=== PATIENT | female | born 1995 | race Caucasian/White ===

== ENCOUNTER 2024-12-19 08:32 | Emergency (ER) | payer SELFPAY ==
[2024-12-19 08:44] VITALS: BP 129/66; PULSE 81; RESP 18; TEMP 36.4; O2SAT 100
--- NOTE | 2024-12-19 08:45 | ED.FEMALEGU ---
HPI - Female Genitourinary General Chief complaint: Urogenital-Female Stated complaint: test Time Seen by Provider: 12/19/24 08:45 Source: patient (Significant other) Mode of arrival: ambulatory Limitations: no limitations History of Present Illness HPI Narrative: Elana is a 29-year-old female patient presenting to the clinic today requesting a test. She reports she has taken a couple at home test and they were positive. Wanted to come into the clinic today to confirm . Last menstrual period was in mid October-she does not know the exact day. She denies any abdominal pain, vaginal bleeding, or vaginal discharge. No urinary symptoms. She is having some morning sickness. She is from the [facility] and does not have a primary care or OBGYN. Related Data Home Medications ?Medication ?Instructions ?Recorded ?Confirmed ?Last Taken ?Type No Home Medications 12/19/24 12/19/24 Unknown History Allergies Allergy/AdvReac Type Severity Reaction Status Date / Time No Known Allergies Allergy Verified 12/19/24 08:56 Review of Systems Review of Systems: Pertinent positives per HPI. Patient denies any fever, chills, rash, headache, visual changes, dizziness, cough, runny nose, sore throat, shortness of breath, chest pain, palpitations, nausea, vomiting, diarrhea, constipation, abdominal pain, or any urinary issues. PMFSH Comments At the time of my signature, I reviewed and agree with the nursing past medical, surgical, social, and family history. There is no relevant family history pertinent to the patient complaint. Exam Narrative: General: Well-developed, obese, in no apparent distress. Head: Normocephalic, atraumatic. Cardio: Regular rate and rhythm, s1 and s2 normal, no murmur appreciated. Resp: Clear to auscultation bilaterally, no rhonchi, rales, wheezing or rubs. Abdomen: Soft, pliable, bowel sounds present in all quadrants, non-tender to palpation, no organomegly, no CVAT tenderness. Course Course Emergency Course: Portions of this record may have been created with voice recognition software. Level of Care: Express Care Visit Vital Signs Vital signs: Vital Signs Temperature 36.4 C L 12/19/24 08:44 Pulse Rate 81 12/19/24 08:44 Respiratory Rate 18 12/19/24 08:44 Blood Pressure 129/66 12/19/24 08:44 Pulse Oximetry 100 12/19/24 08:44 Oxygen Delivery Room Air 12/19/24 08:44 Temperature 36.4 C L 12/19/24 08:44 Pulse Rate 81 12/19/24 08:44 Respiratory Rate 18 12/19/24 08:44 Blood Pressure 129/66 12/19/24 08:44 Pulse Oximetry 100 12/19/24 08:44 Oxygen Delivery Room Air 12/19/24 08:44 Vital signs reviewed MDM - Female Genitourinary MDM Narrative Medical decision making narrative: At the time of visit patient is resting comfortably on the exam table. Patient appears to be nontoxic. Labs: Bedside test was positive in the clinic today. Plan: Bedside test was positive in the clinic today. Recommend follow-up with OBGYN-call to make an appointment. callisthenics instructor OBGYN information Dr. Neri given to patient. say medication list given to the patient. Supportive measures were discussed with the patient and they voiced understanding discharge instructions and agrees to treatment plan. Return precautions reviewed Differential Diagnosis Differential diagnosis: Likely other (Bedside test positive, encounter for test) Lab Data Labs: Lab Results 12/19/24 Range/Units 08:51 POC Urine HCG, Qual Positive (Negative) Discharge Plan Discharge Clinical Impression: Encounter for test, result positive Patient Disposition: Home Condition: Stable Instructions: Antibiotic Form, (ED) Additional Instructions: Bedside test was positive in the clinic today. Increase fluids and stay well hydrated May start taking vitamins Follow-up with OBGYN-call today to schedule appointment. Approved Medications for Patients Cold and Flu Symptoms --Tylenol (regular or extra Strength) Fever (call if over 101?)--Tylenol (regular or extra Strength) Nasal Drainage/Head Congestion--Chlor-Trimeton, Sudafed, Tavist,Tylenol Sinus Cough--Robitussin, Delsym, Mucinex Sore Throat--Chloraseptic, Cepacol lozenges Allergy Symptoms--Benadryl, Zyrtec, Zyrtec D, Claritin, Claritin D Nausea--Emetrol, Vitamin B6 Tablets, Rebeka, Rebeka Tea, Preggie Pops, B- Suckers Constipation--Milk of Magnesia, Metamucil, Fiberall, Konsyl, Colace (Docusate Sodium) Diarrhea--Imodium, Kaopectate, Follow BRAT diet: bananas, rice, applesauce, tea/toast Heartburn--Maalox, Mylanta, TUMS, Prilosec OTC, Zantac, Tagament, Prevacid, Pepcid Hemorrhoids--Tucks Pads, Anusol, Preparation H, warm sitz baths Patient Language: Austrian Prescriptions: No Action No Home Medications Follow-up/Referrals: Carlo Neri MD [Physician] - 1 Day (Positive bedside urine test) PHYSICIAN,JUNIOR SYSTEMS ENGINEER [Primary Care Provider] - Time of Disposition: 08:56 Quality NIHSS Nursing Documentation ED NIHSS nursing documentation: reviewed/agree
[2024-12-19 08:52] LABS: BEDSIDEPREGUCG Positive (Negative)
== END 2024-12-19 08:57 | disposition home or self-care (01) ==
PROVIDERS: Emergency Provider Nurse Practitioner Family
DX: Z32.01 Encounter for pregnancy test, result positive (principal)
CPT/HCPCS: 81025; 99212; G0463

== ENCOUNTER 2025-01-16 13:57 | Outpatient (CLI) | payer SELFPAY ==
--- NOTE | ~2025-01-16 | US_ITS ---
EXAMINATION: US OB <=14 wk fetus w TV DATE: 01/16/2025 14:35 INDICATION: Amenorrhea TECHNIQUE: Real-time transabdominal and transvaginal obstetric ultrasound. FINDINGS: No prior studies for comparison. The uterus measures 11.7 x 6.9 x 7.6 cm. There is an intrauterine gestational sac, with pole id entified. The crown rump length measures 3.4 cm, which correlates with a estimated gestational age o f 10 weeks 2 days. No heart motions are detected. Right ovary measures 3.7 x 2.1 x 2.9 cm. Left ovary measures 5 x 2.3 x 4.1 cm. No significant ovarian or adnexal mass. IMPRESSION: 1. Intrauterine gestational sac with pole corresponding to 10 week 2 day gestation. No he art motions detected, compatible with demise. Recommend follow-up with serial quantitative beta -hCG levels and ultrasound as clinically warranted. Reviewed, dictated and finalized at location A. IMPRESSION: 1. Intrauterine gestational sac with pole corresponding to 10 week 2 day gestation. No heart motions detected, compatible with demise. Recom mend follow-up with serial quantitative beta-hCG levels and ultrasound as clini palak warranted.
== END 2025-01-16 13:58 | disposition home or self-care (01) ==
PROVIDERS: PCP Nurse Practitioner Obstetrics & Gynecology; Visit Provider Nurse Practitioner Obstetrics & Gynecology
DX: N91.2 Amenorrhea, unspecified (principal)
CPT/HCPCS: 76801; 76817

== ENCOUNTER 2025-01-22 10:15 | Outpatient (CLI) | payer SELFPAY | END 2025-01-22 10:16 | disposition home or self-care (01) | PROVIDERS: PCP Nurse Practitioner Obstetrics & Gynecology; Visit Provider Nurse Practitioner Family | DX: O02.1 Missed abortion (principal); Z3A.00 Weeks of gestation of pregnancy not specified | CPT/HCPCS: 36415; 84702 ==

== ENCOUNTER 2025-01-24 10:06 | Outpatient (CLI) | payer SELFPAY | END 2025-01-24 10:07 | disposition home or self-care (01) | PROVIDERS: PCP Nurse Practitioner Obstetrics & Gynecology; Visit Provider Nurse Practitioner Family | DX: O02.1 Missed abortion (principal) | CPT/HCPCS: 36415; 84702 ==